=== PATIENT | male | born 1975 | race Caucasian/White ===

== ENCOUNTER 2020-02-25 23:36 | Emergency (ER) | payer OTHER ==
[~2020-02-25] VITALS: Ht 180.3 cm; Wt 83.9 kg
[2020-02-26 00:15] LABS: ABSOLUTE EOSINOPHILS 0.2 thou/uL (0.0-0.7); ABSOLUTE LYMPHOCYTES 2.4 thou/uL (0.8-5.3); ABSOLUTE MONOCYTES 0.6 thou/uL (0.0-1.2); ABSOLUTE NEUTROPHILS 2.1 thou/uL (1.6-8.1); BASOPHILS 0.8 %; EOSINOPHILS 4.3 %; HEMATOCRIT 41.8 % (42.0-52.0); HEMOGLOBIN 14.5 gm/dL (14.0-18.0); LYMPHOCYTES 44.6 %; MCH 30.1 pg (26.0-34.0); MCHC 34.6 g/dL (28.0-37.0); MONOCYTES 12.1 %; MPV 8.4 fl. (7.2-11.1); NUCLEATED RBCS 0 /100WBC; PLATELET COUNT* 187 thou/uL (150-400); POLYS 38.2 %; RDW-CV 13.1 % (10.5-14.5); WBC 5.4 thou/uL (4.0-11.0)
[2020-02-26 00:27] LABS: CALCIUM 7.8 mg/dL (8.5-10.1); CREATININE 1.2 mg/dL (0.6-1.3); POTASSIUM 4.2 mmol/L (3.5-5.1)
[2020-02-26 00:29] LABS: APTT 25.6 Seconds (25.0-31.3); PROTIME 9.9 Seconds (9.20-11.50)
[2020-02-26 00:41] LABS: ALBUMIN 3.8 g/dL (3.4-5.0); CK-MB MASS 0.7 ng/mL (<0.5-3.6); TOTAL BILIRUBIN 0.2 mg/dL (<0.1-1.0); TOTAL PROTEIN 7.5 g/dL (6.4-8.2)
[2020-02-26 00:50] VITALS: BP 120/79
--- NOTE | 2020-02-26 10:33 | EKG ---
[place] [address] ELECTROCARDIOGRAM REPORT Name: DOTTIE JIMENEZ Room: [facility]#: [id number] Admission: 02/25/20 Attend Phys: Discharge: 02/26/20 Date of : 75 Date of Service: 02/25/202339 Report #: [id number] THIS REPORT FOR: //name// [facility] ED Test Date: 2020-02-25 Test Time: 23:40:38 Pat Name: DOTTIE JIMENEZ Department: Room: Gender: Slp Teacher: : 1975 Requested By: Marito Delgado Order Number: [id number] MD: Ezequiel Jiménez Measurements Intervals [place] Rate: 59 P: 45 NM: 166 QRS: 55 QRSD: 94 T: 30 QT: 415 QTc: 412 Interpretive Statements Sinus rhythm No previous ECG available for comparison Electronically Signed On 02-26-2020 10:32:16 CDT by Ezequiel Jiménez [email or web address] <ELECTRONICALLY SIGNED> By: Ezequiel Jiménez MD, [facility] 02/26/20 1032 2340 2340 Ezequiel Jiménez MD, FACC /EPI
== END 2020-02-26 00:51 | disposition home or self-care (01) ==
LOC: M.ERS 23:36
PROVIDERS: Family Medicine
DX: R07.89 Other chest pain (principal)